=== PATIENT | female | born 1965 | race Caucasian/White ===

== ENCOUNTER 2024-02-26 05:45 | Day surgery (SDC) | payer OTHER ==
[2024-02-23 10:03] VITALS: BP 96/60
[2024-02-26] VITALS (10 sets, daily range): BP systolic 102–124; BP diastolic 59–67
[~2024-02-26] VITALS: Ht 170.2 cm; Wt 70.5 kg
[~2024-02-26 05:45] MED LIST: LACTATED RINGER'S 1,000 ML IV SCH
[2024-02-26] MEDS ORDERED: DEXAMETHASONE SOD PHOS 4 MG/ML VIAL ONE (06:37)
[2024-02-26] MEDS ORDERED: KETOROLAC TROMETHAMINE 30 MG/ML VIAL ONE (06:37)
[2024-02-26] MEDS ORDERED: METOCLOPRAMIDE HCL 10 MG/2 ML SDV ONE (06:37)
[2024-02-26] MEDS ORDERED: ondansetron HCL 4 MG/2 ML VIAL ONE (06:37)
[2024-02-26] MEDS ORDERED: propofoL 200 MG/20 ML VIAL ONE ×2 (06:37→10:13)
[2024-02-26] MEDS ORDERED: LACTATED RINGER'S 1,000 ML IV ONE ×3 (06:37→14:04)
[2024-02-26] MEDS ORDERED: KETAMINE in NS 50 MG/5 ML SYR ONE (06:38)
[2024-02-26] MEDS ORDERED: FAMOTIDINE 20 MG/ 2 ML VIAL ONE (06:38)
[2024-02-26] MEDS ORDERED: fentaNYL citrate 100 MCG/2 ML VIAL ONE (06:38)
[2024-02-26] MEDS ORDERED: MIDAZOLAM HCL 2 MG/2 ML VIAL ONE (06:38)
[2024-02-26] MEDS ORDERED: MORPHINE SULFATE 1 MG/ML VIAL ONE (06:42)
[2024-02-26] MEDS ORDERED: LIDOCAINE 1% W/ EPI 1:200,000 30 ML SDV ONE (06:47)
[2024-02-26] MEDS ORDERED: SODIUM CHLORIDE 0.9% 100 ML IV ONE (06:48)
[2024-02-26] MEDS ORDERED: estradioL 0.01% 42.5 GM TUBE ONE (06:48)
[2024-02-26] MEDS ORDERED: LIDOCAINE HCL 1% 5 ML SDV INJ ONE (07:00)
[2024-02-26] MEDS ORDERED: IBLOOD GLUCOSE TEST STRIP 1 EA TEST VI PRN ×2 (07:00→08:30)
[2024-02-26] MEDS ORDERED: CEFAZOLIN SODIUM 2 GM/20 ML SYR IV SCH (07:00)
[2024-02-26 07:04] LABS: ABO A; ANTIBODY SCREEN NEGATIVE; RH POSITIVE
[2024-02-26] MEDS ORDERED: LIDOCAINE HCL 2% 5 ML SDV ONE (07:21)
[2024-02-26] MEDS ORDERED: BUPIVACAINE 0.75% IN DEXTROSE 2 ML AMP ONE (07:21)
[2024-02-26] MEDS ORDERED: PHENYLEPHRINE HCL 10 MG/ML VIAL ONE (08:00)
[2024-02-26] MEDS ORDERED: droPERidol 5 MG/2 ML VIAL IV PRN (08:30)
[2024-02-26] MEDS ORDERED: NALOXONE HCL 0.4 MG SYR IV PRN ×2 (08:30→10:45)
[2024-02-26] MEDS ORDERED: METOCLOPRAMIDE HCL 10 MG/2 ML SDV IV PRN (08:30)
[2024-02-26] MEDS ORDERED: ondansetron HCL 4 MG/2 ML VIAL IV PRN (08:30)
[2024-02-26] MEDS ORDERED: PROCHLORPERAZINE EDISYLATE 10 MG/2 ML VIAL IV PRN (08:30)
[2024-02-26] MEDS ORDERED: MORPHINE SULFATE 10 MG/ML VIAL IV PRN (08:30)
[2024-02-26] MEDS ORDERED: fentaNYL citrate 50 MCG/ML SDV IV PRN (08:30)
[2024-02-26] MEDS ORDERED: bisacodyL 10 MG SUPP PR PRN (10:45)
[2024-02-26] MEDS ORDERED: FAMOTIDINE 20 MG/ 2 ML VIAL IV PRN (10:45)
[2024-02-26] MEDS ORDERED: HYDROCODONE/ACETA 5/325 TAB PO PRN (10:45)
[2024-02-26] MEDS ORDERED: FAMOTIDINE 20 MG TAB PO PRN (10:45)
[2024-02-26] MEDS ORDERED: MAGNESIUM HYDROXIDE/AL HYDROX 30 ML CUP PO PRN (10:45)
[2024-02-26] MEDS ORDERED: SIMETHICONE 125 MG TABLET CHEWABLE PO PRN (10:45)
[2024-02-26] MEDS ORDERED: ondansetron HCL 4 MG/2 ML VIAL IV ONE ×2 (12:00→17:15)
[2024-02-26] MEDS ORDERED: SIMETHICONE 125 MG TABLET CHEWABLE PO SCH (13:00)
[2024-02-26] MEDS ORDERED: droPERidol 5 MG/2 ML VIAL IV ONE (13:15)
[2024-02-26] MEDS ORDERED: METOCLOPRAMIDE HCL 10 MG/2 ML SDV IV ONE (17:15)
[2024-02-26] MEDS ORDERED: SCOPOLAMINE 1 MG/3 DAYS PATCH 1 EACH TDSY TD SCH (17:30)
[2024-02-26] MEDS ORDERED: FUROSEMIDE 20 MG/2 ML VIAL IV ONE (17:45)
[2024-02-26] MEDS ORDERED: LIDOCAINE 2% VISCOUS 6 ML SYR ONE (19:27)
[2024-02-26] MEDS ORDERED: HYDROCODONE BIT/ACETAMINOPHEN 5/325 MG 1 TAB HOME.PACK PO ONE (19:45)
[2024-02-26] MEDS ORDERED: ONDANSETRON 4 MG HOME.PACK SL ONE (19:45)
[2024-02-26] MEDS ORDERED: SENNOSIDES/DOCUSATE 1 EA TAB PO SCH (21:00)
[2024-02-26] MEDS ORDERED: MINERAL OIL/CHONDRUS 30 ML BTL PO SCH (21:00)
--- NOTE | 2024-03-01 14:35 | PATH ---
[facility] [address] [place], [place] [address] Signed SPECIMEN(S): A UTERUIS AND CERVIX SPECIMEN SOURCE: A. UTERUIS AND CERVIX CLINICAL HISTORY: Uterine prolapse, cystocele, rectocele, stress incontinence FINAL PATHOLOGIC DIAGNOSIS: Uterus and cervix: - Atrophic endometrium, negative for hyperplasia or atypia. - Focal endometrial adenomyosis. - Benign endo and ectocervix. JVR:jenny MICROSCOPIC EXAMINATION: Histologic sections of all submitted blocks are examined by light microscopy. These findings, together with the gross examination, support the pathologic diagnosis. GROSS DESCRIPTION: The specimen, labeled and designated "dAams Rivera, uterus and cervix for requisition," is received in formalin and consists of a 58 g, 7.9 cm fundus to cervix, 4 cm cornu to cornu, 3.3 cm anterior to posterior uterus with absent bilateral adnexa. The attached cervix measures 4 x 3.5 cm and has a 0.8 cm slitlike os. The endometrial canal measures 2.6 x 1 cm and has a tran-pink endometrium averaging 0.2 cm in thickness. The myometrium averages 1.2 cm in thickness and is tran-pink and trabecular. There are no discrete masses or polyps. Port Surveyor sections are submitted as follows: Cassette Summary: (A1) anterior cervix (A2) posterior cervix (A3) anterior and posterior endomyometrium AA (under the direct supervision of a pathologist) The Gross Description was prepared using a voice recognition system. The report was reviewed for accuracy; however, sound-alike word errors, addition and/or deletions may occur. If there is any question about this report, please contact Client Services. PATIENT NAME: BERNY RIVERA PATHOLOGY DATE OF : 65 REPORT #: [id number] PHYSICIAN: WILLIAM CLARK PCP: NITO ROCA MD REPORT IS CONFIDENTIAL AND NOT TO BE RELEASED WITHOUT AUTHORIZATION [facility] [address] [facility] [place] [address] Signed PERFORMING LABORATORY: Technical component was performed by [facility], [address] [place] [address] (CLIA# [id number]). Professional interpretation was performed by [facility], [address] [place] [id number] (CLIA#: [id number]). Diagnostician: Heron Munguia MD Pathologist Electronically Signed 03/01/2024 Copies: ~ PATIENT NAME: BERNY RIVERA PATHOLOGY DATE OF : 65 REPORT #: [id number] PHYSICIAN: WILLIAM CLARK PCP: NITO ROCA MD REPORT IS CONFIDENTIAL AND NOT TO BE RELEASED WITHOUT AUTHORIZATION
== END 2024-02-26 20:50 | disposition home or self-care (01) ==
LOC: OPS 05:45 → DS 05:45 → OPS 07:30 → DS 07:30 → MS 17:45 → OPS 20:50
PROVIDERS: ATTEND Obstetrics & Gynecology
PROC: 0TSD0ZZ Reposition Urethra, Open Approach (ICD-10-PCS; principal; 2024-02-26 07:30)
PROC: 0JQC0ZZ Repair Pelvic Region Subcutaneous Tissue and Fascia, Open Approach (ICD-10-PCS; 2024-02-26 07:30)
PROC: 0UT97ZZ Resection of Uterus, Via Natural or Artificial Opening (ICD-10-PCS; 2024-02-26 07:30)
DX: N81.3 Complete uterovaginal prolapse (principal); N39.3 Stress incontinence (female) (male); N80.03 Adenomyosis of the uterus; E78.5 Hyperlipidemia, unspecified; E03.9 Hypothyroidism, unspecified; Z87.891 Personal history of nicotine dependence
CPT/HCPCS: 00944; 36415; 51702; 86850; 86900; 86901; A9270; C1771; J0690; J1100; J1790; J1885; J1940; J2003; J2250; J2274; J2371; J2405; J2704; J2765; J3010; J3490; J7121

== ENCOUNTER 2024-06-02 12:57 | Emergency (ER) | payer OTHER ==
[~2024-06-02] VITALS: Ht 170.2 cm; Wt 70.5 kg
[2024-06-02] MEDS ORDERED: ondansetron HCL 4 MG TAB PO ONE (19:45)
[2024-06-02] MEDS ORDERED: OXYCODONE/APAP 5/325 TAB PO ONE (19:45)
[2024-06-02 19:55] VITALS: BP 107/84
[2024-06-02] MEDS ORDERED: OXYCODONE/APAP 5/325 TAB ONE (19:56)
[2024-06-02] MEDS ORDERED: PERCOCET 5-3251 EACH PO (20:10)
== END 2024-06-02 20:20 | disposition home or self-care (01) ==
LOC: ED 12:57
DX: S82.145A Nondisplaced bicondylar fracture of left tibia, initial encounter for closed fracture (principal); V18.4XXA Pedal cycle driver injured in noncollision transport accident in traffic accident, initial encounter; Z88.1 Allergy status to other antibiotic agents
CPT/HCPCS: 73560; 73700; 99284-25; A9270

== ENCOUNTER 2024-10-27 09:11 | Emergency (ER) | payer OTHER ==
[~2024-10-27] VITALS: Ht 170.2 cm; Wt 70.5 kg
[~2024-10-27 09:11] MED LIST changes: -LACTATED RINGER'S 1,000 ML IV SCH; +PERCOCET 5-3251 EACH PO
[2024-10-27] MEDS ORDERED: AMOX TR-K CLV1 EAC1 PO (09:24)
[2024-10-27 09:43] VITALS: BP 126/89
== END 2024-10-27 09:40 | disposition home or self-care (01) ==
LOC: ED 09:11
DX: S61.251A Open bite of left index finger without damage to nail, initial encounter (principal); Z88.8 Allergy status to other drugs, medicaments and biological substances; W54.0XXA Bitten by dog, initial encounter
CPT/HCPCS: 99283